=== PATIENT | female | born 1940 | race Asian ===

== ENCOUNTER 2016-12-23 09:18 | Day surgery (SDC) | payer OTHER ==
[2016-12-23 10:01] VITALS: BMI 25.3
[2016-12-23] MEDS ORDERED: PROPOFOL 20 ML ONE (10:05)
[2016-12-23 10:56] VITALS: TEMP 97.7
[2016-12-23 11:25] VITALS: BP 105/59; PULSE 73
--- NOTE | 2016-12-24 12:07 | PATH ---
Surgical Pathology Report Patient Name: DYLAN MARISCAL [facility]. Rec. #: [id number] /Age/Gender: 1940 (Age: 76) / F Account: [id number] Location: U-ENDOSCOPY Taken: 12/23/2016 Received: 12/23/2016 Reported: 12/24/2016 Physicians: Cleopatra Joseph M.D. Specimen(s) Received A: BX STOMACH (BODY/ANTRUM) B: BX GE JUNCTION Clinical History Gastric metaplasia Severe GERD, hiatal hernia, gastritis Final Diagnosis A. STOMACH, BODY AND ANTRUM, BIOPSY: MILD CHRONIC GASTRITIS. IMMUNOSTAIN FOR H. PYLORI IS NEGATIVE. B. GE JUNCTION, BIOPSY: SQUAMOUS MUCOSA WITH PAPILLOMATOSIS SUGGESTIVE OF REFLUX ESOPHAGITIS. NO INTESTINAL METAPLASIA IDENTIFIED (NO DICKERSON'S IDENTIFIED). Electronically Signed Lamont Manzano M.D. Gross Description A. Received in formalin, labeled "biopsy body/antrum" are 5 butt, irregular portions of soft tissue ranging from 0.2-0.5 cm. in greatest dimension. The specimens are submitted in toto in one cassette. B. Received in formalin, labeled "biopsy GE junction" are 3 butt, irregular portions of soft tissue ranging from 0.2-0.6 cm. in greatest dimension. The specimens are submitted in toto in one cassette. 12/23/201612/23/2016
== END 2016-12-23 11:31 | disposition home or self-care (01) ==
LOC: JASU-ENDO 09:18
PROVIDERS: ATTEND Internal Medicine Gastroenterology
PROC: 0DB38ZX Excision of Lower Esophagus, Via Natural or Artificial Opening Endoscopic, Diagnostic (ICD-10-PCS; 2016-12-23)
PROC: 0DB68ZX Excision of Stomach, Via Natural or Artificial Opening Endoscopic, Diagnostic (ICD-10-PCS; principal; 2016-12-23 10:00)
DX: K21.9 Gastro-esophageal reflux disease without esophagitis (principal); K20.9 Esophagitis, unspecified; K44.9 Diaphragmatic hernia without obstruction or gangrene; K22.2 Esophageal obstruction
CPT/HCPCS: 88305-TC; 88342-TC

== ENCOUNTER → 2017-01-13 | Day surgery (SDC) | payer OTHER ==
--- NOTE | 2017-01-14 15:37 | PATH ---
Cytology Non-Gynecological Report Patient Name: DYLAN MARISCAL [facility]. Rec. #: [id number] /Age/Gender: 1940 (Age: 76) / F Account: [id number] Location: RADIOLOGY Taken: 01/13/2017 Received: 01/13/2017 Reported: 01/14/2017 Physicians: Yoselyn Tracy M.D. Specimen(s) Received LEFT THYROID FNA Clinical History Left thyroid nodule, 5.19 x 3.02 x 3.15 cm Final Diagnosis THYROID GLAND, LEFT LOBE, US GUIDED FINE NEEDLE ASPIRATION BIOPSY: SATISFACTORY FOR EVALUATION. NO MALIGNANT CELLS IDENTIFIED. CONSISTENT WITH NODULAR GOITER WITH CYSTIC CHANGE (BENIGN FOLLICULAR NODULE, BETHESDA CATEGORY II, BENIGN), SEE COMMENT. Comment: The smears and the cell block show clusters of bland-appearing follicular petechial cells arranged in mixed macro- and microfollicles. Macrophages are present indicative of cystic change. Abundant colloid is present. Electronically Signed Tony George M.D. Gross Description Received are four air dried smears, four smears in 95% alcohol, and 20 cc of bloody fluid in formalin. Four diff-quik stained slides, four Pap stained slides and one cell block are made.
== END | disposition home or self-care (01) ==
LOC: JRADIR 08:55
PROVIDERS: ATTEND Internal Medicine Endocrinology, Diabetes & Metabolism
PROC: 0G9G3ZX Drainage of Left Thyroid Gland Lobe, Percutaneous Approach, Diagnostic (ICD-10-PCS; principal; 2017-01-13)
PROC: BG44ZZZ Ultrasonography of Thyroid Gland (ICD-10-PCS; 2017-01-13)
DX: E04.1 Nontoxic single thyroid nodule (principal)
CPT/HCPCS: 76942; 88173; 88305-TC

== ENCOUNTER 2017-06-01 08:17 | Observation (INO) | payer OTHER ==
[2017-06-01] MEDS ORDERED: ONDANSETRON 4 MG/2 ML VIAL IVPUSH ONE (08:49)
[2017-06-01] MEDS ORDERED: FAMOTIDINE 20 MG/50 ML IVPB 50 ML IVPB ONE ×2 (08:56→09:01)
[2017-06-01] MEDS ORDERED: MAG HYDROX/AL HYDROX/SIMETH 30 ML UNIT-DOSE CUP PO ONE (08:56)
[2017-06-01] MEDS ORDERED: MAG HYDROX/AL HYDROX/SIMETH 30 ML UNIT-DOSE CUP ONE (09:01)
[2017-06-01] MEDS ORDERED: ONDANSETRON 4 MG/2 ML VIAL ONE (09:01)
--- NOTE | 2017-06-01 09:04 | PDOC ---
Attending Attestation - HPI HPI: 06/01/17 09:05 The patient is a 76 year old female, with a significant past medical history of CVA (2015), NIDDM, Gastritis, Colon Adenoma, Diverticulitis, GERD, Gout, HTN, HLD, Thyroid goiter, Dementia who presents to the emergency department with LUQ abdominal pain and vomiting. Patient reports 2 episodes of vomiting (nonbilious , nonbloody) and associated nausea. Patient denies any bloody stool. She denies chest pain, headache or dizziness. She denies fever, chills, diarrhea or constipation. She denies dysuria, frequency, urgency or hematuria. Allergies: NKA Past surgical history: None Social history: None PCP: None - Physicial Exam PE: 06/01/17 09:05 GENERAL: Awake, alert, and fully oriented, in no acute distress HEAD: No signs of trauma EYES: PERRLA, EOMI, sclera anicteric, conjunctiva clear ENT: Auricles normal inspection, hearing grossly normal, nares patent, oropharynx clear without exudates. Moist mucosa NECK: Normal ROM, supple, no lymphadenopathy, JVD, or masses LUNGS: Breath sounds equal, clear to auscultation bilaterally. No wheezes, and no crackles HEART: Regular rate and rhythm, normal S1 and S2, no murmurs, rubs or gallops ABDOMEN: +LUQ tenderness. Soft, normoactive bowel sounds. No guarding, no rebound. No masses EXTREMITIES: Normal range of motion, no edema. No clubbing or cyanosis. No cords, erythema, or tenderness NEUROLOGICAL: Cranial nerves II through XII grossly intact. Normal speech, normal gait SKIN: Warm, Dry, normal turgor, no rashes or lesions noted. - Medical Decision Making 06/01/17 09:05 Documentation prepared by Kirstin James, acting as medical director/head team physician for Juventino Woods MD <Kirstin James - Last Filed: 06/01/17 09:05> - Resident Resident Name: Toni Gupta - ED Attending Attestation I have performed the following: I have examined & evaluated the patient, The case was reviewed & discussed with the resident, I agree w/resident's findings & plan, Exceptions are as noted - Medical Decision Making 06/01/17 09:03 Portion of this note was written by my scribe, under my supervision. Vital Signs Temp Pulse Resp BP Pulse Ox 97.5 F L 85 18 138/70 99 06/01/17 08:23 06/01/17 08:23 06/01/17 08:23 06/01/17 08:23 06/01/17 08:23 76-year-old female history of hypertension, diabetes and history of gastric ulcer presents with left upper quadrant pain. Patient reports that she has had several episodes of vomiting with this left upper quadrant pain that is reminiscent of her gastritis. Denies fevers or chills. Though the triage note documents red stool, the patient actually denies bloody stool per rectum. I suspect this is likely gastritis. However, given her age, we'll obtain EKG and a troponin. Labs to rule out other abdominal etiology such as pancreatitis. GERD medications and reassess. 06/01/17 09:21 06/01/17 12:50 CBC, BMP 06/01/17 08:59 06/01/17 08:59 CMP Sodium 140 mmol/L (136-145) 06/01/17 08:59 Potassium 3.5 mmol/L (3.5-5.1) 06/01/17 08:59 Chloride 105 mmol/L (98-107) 06/01/17 08:59 Carbon Dioxide 27 mmol/L (21-32) 06/01/17 08:59 Anion Gap 8 (8-16) 06/01/17 08:59 BUN 34 mg/dL (7-18) H 06/01/17 08:59 Creatinine 1.9 mg/dL (0.55-1.02) H D 06/01/17 08:59 Creat Clearance w eGFR 25.57 (>60) 06/01/17 08:59 Random Glucose 104 mg/dL (74-106) D 06/01/17 08:59 Lactic Acid 0.9 mmol/L (0.4-2.0) 06/01/17 08:59 Calcium 9.0 mg/dL (8.5-10.1) 06/01/17 08:59 Total Bilirubin 0.8 mg/dL (0.2-1.0) D 06/01/17 08:59 AST 22 U/L (15-37) 06/01/17 08:59 ALT 24 U/L (12-78) D 06/01/17 08:59 Alkaline Phosphatase 78 U/L (45-117) D 06/01/17 08:59 Creatine Kinase 226 IU/L (26-192) H 06/01/17 08:53 Creatine Kinase Index 1.4 % (0.0-5.0) 06/01/17 08:53 CK-MB (CK-2) 3.325 ng/mL (0.5-3.6) 06/01/17 08:53 Troponin I 0.09 ng/ml (0.00-0.05) H 06/01/17 08:53 Total Protein 7.9 g/dl (6.4-8.2) 06/01/17 08:59 Albumin 4.2 g/dl (3.4-5.0) 06/01/17 08:59 Lipase 143 U/L (73-393) 06/01/17 08:59 Trop is 0.09. Given hx of CV risk factors and age, will admit for PAULIE on telemettry. <Juventino Woods - Last Filed: 06/01/17 12:50> Heart Score/ECG Review #1 ECG reviewed & interpreted by me at: 09:10 06/01/17 09:22 NSR 85, no std/emmy, T wave flat III, QTC 447 msec. normal ECG <Juventino Woods - Last Filed: 06/01/17 12:50>
[2017-06-01 09:27] LABS: BASOPHIL 0.4 % (0-2.0); EOSINOPHIL 1.5 % (0-4.5); MCH 30.7 pg (25.7-33.7); MCHC 33.2 g/dl (32.0-36.0); MEAN CELL VOLUME 92.5 fl (80-96); MEAN PLT VOLUME 8.6 fl (7.5-11.1); NEUTROPHILS 68.3 % (42.8-82.8); PLATELET COUNT 159 K/MM3 (134-434); RDW 14.1 % (11.6-15.6); WHITE BLOOD COUNT 8.2 K/mm3 (4.0-10.0)
[2017-06-01 09:30] LABS: URINE APPEARANCE CLEAR; URINE BILIRUBIN NEGATIVE (NEGATIVE); URINE BLOOD NEGATIVE (NEGATIVE); URINE COLOR LT. YELLOW; URINE GLUCOSE (UA) NEGATIVE (NEGATIVE); URINE KETONE TRACE (NEGATIVE); URINE LEUK ESTERASE NEGATIVE (NEGATIVE); URINE NITRITE NEGATIVE (NEGATIVE); URINE PROTEIN NEGATIVE (NEGATIVE)
--- NOTE | 2017-06-01 09:53 | PDOC ---
History of Present Illness - General Chief Complaint: Pain Stated Complaint: ABD PAIN/rectal bleed/vomiting Time Seen by Provider: 06/01/17 08:31 History Source: Patient Exam Limitations: No Limitations - History of Present Illness Initial Comments: 06/01/17 09:48 Patient is a 76F with history of HTN, DM, gastric ulcer, dementia and SAH (2014 ) here today complaining of two episodes of vomiting. She has vomited once yesterday and once the day before, describes both as reddish-brown liquid. She denies abdominal pain, chest pain, shortness of breath, diarrhea, constipation, fevers and chills. She denies blood or melena in her stool. She's currently complaining of nausea. She denies sick contacts. She says that she's currently taking pantoprazole for her peptic ulcer. Past History - Past Medical History Allergies/Adverse Reactions: Allergies Allergy/AdvReac Type Severity Reaction Status Date / Time No Known Allergies Allergy Verified 06/01/17 08:25 Home Medications: Ambulatory Orders Allopurinol [Zyloprim -] 200 mg PO DAILY 04/05/15 Aspirin [ASA -] 81 mg PO DAILY 04/05/15 Atorvastatin Ca [Lipitor] 10 mg PO HS 04/05/15 Glyburide 5 mg PO DAILY 04/05/15 Losartan/Hydrochlorothiazide [Losartan-Hctz 100-25 mg Tab] 1 each PO DAILY 04/05 Alendronate Sodium [Binosto] 70 mg PO TU 12/23/16 Bimatoprost [Lumigan] 1 drop IO DAILY 12/23/16 Cyanocobalamin (Vitamin B-12) [Vitamin B12] 1,000 mcg PO DAILY 12/23/16 Donepezil HCl [Aricept -] 5 mg PO DAILY 12/23/16 Memantine HCl [Namenda -] 10 mg PO BID 12/23/16 Methimazole [Tapazole] 5 mg PO ASDIR 12/23/16 Pantoprazole Sodium [Protonix] 40 mg PO DAILY #0 tablet. 12/23/16 Ranitidine HCl [Zantac] 150 mg PO BID 06/01/17 Diabetes: Yes (NIDDM) GI Disorders: Yes (S/P H-PYLORI GASTRITIS, COLON ADENOMA, DIVERTICULOSIS, GERD) Disorders: Yes (GOUT) HTN: Yes Hypercholesterolemia: Yes Thyroid Disease: Yes (GOITER - EUTHYROID) - Psycho/Social/Smoking Cessation Hx Anxiety: No Suicidal Ideation: No Smoking History: Never smoked Have you smoked in the past 12 months: No Information on smoking cessation initiated: No Hx Alcohol Use: No Drug/Substance Use Hx: No Substance Use Type: None Review of Systems - Review of Systems Comments:: 06/01/17 10:20 GENERAL/CONSTITUTIONAL: No fever or chills. No weakness. HEAD, EYES, EARS, NOSE AND THROAT: No change in vision. No ear pain or discharge. No sore throat. CARDIOVASCULAR: No chest pain or shortness of breath RESPIRATORY: No cough, wheezing, or hemoptysis. GASTROINTESTINAL: Positive for nausea and vomiting. Negative for diarrhea or constipation. GENITOURINARY: No dysuria, frequency, or change in urination. SKIN: No rash NEUROLOGIC: No headache, loss of consciousness, or change in strength/ sensation. HEMATOLOGIC/LYMPHATIC: No anemia, easy bleeding, or history of blood clots. ALLERGIC/IMMUNOLOGIC: No hives or skin allergy. *Physical Exam - Vital Signs Last Vital Signs Temp Pulse Resp BP Pulse Ox 97.5 F L 85 18 138/70 99 06/01/17 08:23 06/01/17 08:23 06/01/17 08:23 06/01/17 08:23 06/01/17 08:23 - Physical Exam Comments: 06/01/17 10:21 GENERAL: Awake, alert, and fully oriented, in no acute distress HEAD: No signs of trauma, normocephalic, atraumatic EYES: PERRLA, EOMI, sclera anicteric, conjunctiva clear ENT: Auricles normal inspection, hearing grossly normal, nares patent, oropharynx clear without exudates. Moist mucosa LUNGS: No distress, speaks full sentences, clear to auscultation bilaterally HEART: Regular rate and rhythm, normal S1 and S2, no murmurs, rubs or gallops, peripheral pulses normal and equal bilaterally. ABDOMEN: Tender in left upper quadrant. No guarding, no rebound. No masses EXTREMITIES: Normal inspection, Normal range of motion, no edema. No clubbing or cyanosis. NEUROLOGICAL: Cranial nerves II through XII grossly intact. Normal speech, normal gait, no focal sensorimotor deficits SKIN: Warm, Dry, normal turgor, no rashes or lesions noted. Heart Score/ECG Review - History History: Slightly suspicious - Electrocardiogram EKG: Normal - Age Age: >/= 65 - Risk Factors Risk Factors Heart Score: Yes Hx Hypertension, Yes Hx Diabetes Based on the list above the patient has:: 1-2 risk factors - Troponin Troponin: 1-3x normal limit - Score Heart Score - Total: 4 ED Treatment Course - LABORATORY CBC & Chemistry Diagram: 06/01/17 08:59 06/01/17 08:59 - ADDITIONAL ORDERS Additional order review: Laboratory Results 06/01/17 08:59 Urine Color Lt. yellow Urine Appearance Clear Urine pH 6.0 Urine Protein Negative Urine Glucose (UA) Negative Urine Ketones Trace H Urine Blood Negative Urine Nitrite Negative Urine Bilirubin Negative Urine Urobilinogen 1.0 - Medications Given in the ED: ED Medications Discontinued Medications Generic Name Dose Route Start Last Admin Trade Name Freq PRN Reason Stop Dose Admin Al Hydroxide/Mg Hydroxide 30 ml 06/01/17 08:56 06/01/17 09:05 Mylanta Oral Suspension - PO 06/01/17 08:57 30 ml ONCE ONE Administration Famotidine/Sodium Chloride 50 mls @ 100 mls/hr 06/01/17 08:56 06/01/17 09:05 Pepcid 20 Mg Premixed Ivpb - IVPB 06/01/17 09:25 100 mls/hr ONCE ONE Administration Ondansetron HCl 4 mg 06/01/17 08:49 06/01/17 09:05 Zofran Injection IVPUSH 06/01/17 08:50 4 mg ONCE ONE Administration Medical Decision Making - Medical Decision Making 06/01/17 10:22 Patient is 76F with history of DM and HTN here today complaining of vomiting. Vital signs stable and normal. Will evaluate with abdominal labs, trop, ecg, and ua. EKG shows normal sinus rhythm, normal rate, QTc 447, no st elevations and no t- wave inversions 06/01/17 10:25 Laboratory Tests 06/01/17 06/01/17 06/01/17 08:53 08:59 08:59 WBC 8.2 Hgb 11.4 Hct 34.2 Plt Count 159 BUN 34 H Creatinine 1.9 H D Creat Clearance w eGFR 25.57 Creatine Kinase 226 H CK-MB (CK-2) 3.325 Troponin I 0.09 H CBC normal. CMP notable for BUN 34 and Cr of 1.9, up from baseline of 1.5. Trop positive to .09. ASA 162 given, second trop ordered for 1300. Patient now notes that she's had a couple episodes of left arm pain the past few days. Patient has ZAID, possible cause of positive trop, will give 1L. HEART score 4, will admit to obs. *DC/Admit/Observation/Transfer Diagnosis at time of Disposition: Acute kidney injury, Elevated troponin level - Discharge Dispostion Admit: Yes
[2017-06-01 09:55] LABS: ALBUMIN 4.2 g/dl (3.4-5.0); ALK PHOS 78 U/L (45-117); ANION GAP 8 (8-16); BILIRUBIN,TOTAL 0.8 mg/dL (0.2-1.0); CO2 27 mmol/L (21-32); CREATININE 1.9 mg/dL (0.55-1.02); GLUCOSE,RANDOM 104 mg/dL (74-106); SGOT/AST 22 U/L (15-37); SGPT/ALT 24 U/L (12-78); TOT PROT 7.9 g/dl (6.4-8.2)
[2017-06-01 09:58] LABS: TROPONIN I 0.09 ng/ml (0.00-0.05)
[2017-06-01] MEDS ORDERED: ASPIRIN 81 MG CHEWABLE TABLETS PO ONE (10:05)
[2017-06-01] MEDS ORDERED: SODIUM CHLORIDE 1,000 ML IV STA (10:12)
[2017-06-01] MEDS ORDERED: ASPIRIN 81 MG CHEWABLE TABLETS ONE (10:13)
--- NOTE | 2017-06-01 10:25 | EKG ---
Test Reason : Blood Pressure : / mmHG Vent. Rate : 085 BPM Atrial Rate : 085 BPM P-R Int : 168 ms QRS Dur : 074 ms QT Int : 376 ms P-R-T Axes : 048 001 046 degrees QTc Int : 447 ms NORMAL SINUS RHYTHM BASELINE ARTIFACTS COMPARED TO 05-APR-2015 PREVIOUS TRACING HAD SIGNIFICANT BASELINE ARTIFACTES REPEAT EKG IF CLINICALLY INDICATED Confirmed by REBECA BALDERAS MD ([id number]) on 06/01/2017 10:25:25 AM Referred By: Confirmed By:REBECA BALDERAS MD
--- NOTE | 2017-06-01 11:00 | HP ---
CHIEF COMPLAINT: abdominal pain for 2 days with nausea and bloody vomiting. PCP: Dr. Piper HISTORY OF PRESENT ILLNESS: Patient is a 76 year old female with a significant past medical history of hypertension, diabetes mellitus, gastric ulcer disease, dementia, colon adenoma , diverticulities, GERD, gout and CVA/subdural hematoma (2014). She presents to the ED today complaining of abdominal pain for 2 days with nausea and vomiting. States that this past Wednesday and Wednesday she vomited what appeared to be "dark arrington colored" vomiting. She denies any rectal bleeding or bloody stools. States her last bowel movement was yesterday and it was brown and formed. She denies any vomiting today and states she feels better and is asking to go home. She denies chest pain , back pain, jaw pain or shortness of breath, She endorses left arm pain after getting a flu shot last Wednesday. ER course was notable for: (1) bun 34, creat 1.9 (2) lactic acid 0.9 (3) trop 0.09, ekg nsr baseline artifact Recent Travel: PAST MEDICAL HISTORY: CVA (2014), NIDDM, Gastritis, Colon Adenoma, Diverticulitis, GERD, Gout, HTN, HLD, PAST SURGICAL HISTORY: Social History: Smoking: none Alcohol: none Drugs: none Family History: Allergies No Known Allergies Allergy (Verified 06/01/17 08:25) HOME MEDICATIONS: Home Medications Medication Instructions Recorded Allopurinol [Zyloprim -] 200 mg PO DAILY 04/05/15 Aspirin [ASA -] 81 mg PO DAILY 04/05/15 Atorvastatin Ca [Lipitor] 10 mg PO HS 04/05/15 Glyburide 5 mg PO DAILY 04/05/15 Losartan/Hydrochlorothiazide 1 each PO DAILY 04/05/15 [Losartan-Hctz 100-25 mg Tab] Alendronate Sodium [Binosto] 70 mg PO TU 12/23/16 Bimatoprost [Lumigan] 1 drop IO DAILY 12/23/16 Cyanocobalamin (Vitamin B-12) 1,000 mcg PO DAILY 12/23/16 [Vitamin B12] Donepezil HCl [Aricept -] 5 mg PO DAILY 12/23/16 Memantine HCl [Namenda -] 10 mg PO BID 12/23/16 Methimazole [Tapazole] 5 mg PO ASDIR 12/23/16 Pantoprazole Sodium [Protonix] 40 mg PO DAILY #0 tablet. 12/23/16 Ranitidine HCl [Zantac] 150 mg PO BID 06/01/17 REVIEW OF SYSTEMS CONSTITUTIONAL: Absent: fever, chills, diaphoresis, generalized weakness, malaise, loss of appetite, weight change HEENT: Absent: rhinorrhea, nasal congestion, throat pain, throat swelling, difficulty swallowing, mouth swelling, ear pain, eye pain, visual changes CARDIOVASCULAR: Absent: chest pain, syncope, palpitations, irregular heart rate, lightheadedness , peripheral edema RESPIRATORY: Absent: cough, shortness of breath, dyspnea with exertion, orthopnea, wheezing, stridor, hemoptysis GASTROINTESTINAL: Absent: abdominal pain, abdominal distension, nausea, vomiting, diarrhea, constipation GENITOURINARY: Absent: dysuria, frequency, urgency, hesitancy, hematuria, flank pain, genital pain MUSCULOSKELETAL: Absent: myalgia, arthralgia, joint swelling, back pain, neck pain SKIN: Absent: rash, itching, pallor HEMATOLOGIC/IMMUNOLOGIC: Absent: easy bleeding, easy bruising, lymphadenopathy, frequent infections ENDOCRINE: Absent: unexplained weight gain, unexplained weight loss, heat intolerance, cold intolerance NEUROLOGIC: Absent: headache, focal weakness or paresthesias, dizziness, unsteady gait, seizure, mental status changes, bladder or bowel incontinence PSYCHIATRIC: Absent: anxiety, depression, suicidal or homicidal ideation, hallucinations. PHYSICAL EXAMINATION Vital Signs - 24 hr 06/01/17 08:23 Temperature 97.5 F L Pulse Rate 85 Respiratory 18 Rate Blood Pressure 138/70 O2 Sat by Pulse 99 Oximetry (%) GENERAL: Awake, alert, and fully oriented, in no acute distress. HEAD: Normal with no signs of trauma. EYES: Pupils equal, round and reactive to light, extraocular movements intact, sclera anicteric, conjunctiva clear. No lid lag. EARS, NOSE, THROAT: Ears normal, nares patent, oropharynx clear without exudates. Moist mucous membranes. NECK: Normal range of motion, supple without lymphadenopathy, JVD, or masses. LUNGS: Breath sounds equal, clear to auscultation bilaterally. No wheezes, and no crackles. No accessory muscle use. HEART: Regular rate and rhythm ABDOMEN: Soft, nontender, not distended, normoactive bowel sounds, no guarding, no rebound, no masses. No hepatomegaly or splenomegaly. MUSCULOSKELETAL: Normal range of motion at all joints. No bony deformities or tenderness. No CVA tenderness. UPPER EXTREMITIES: 2+ pulses, warm, well-perfused. No cyanosis. No clubbing. No peripheral edema. LOWER EXTREMITIES: 2+ pulses, warm, well-perfused. No calf tenderness. No peripheral edema. NEUROLOGICAL: Cranial nerves II-XII intact. Normal speech. Normal gait. PSYCHIATRIC: Cooperative. Good eye contact. Appropriate mood and affect. SKIN: Warm, dry, normal turgor, no rashes or lesions noted, normal capillary refill. Laboratory Results - last 24 hr 06/01/17 06/01/17 06/01/17 08:53 08:59 08:59 WBC 8.2 RBC 3.70 Hgb 11.4 Hct 34.2 MCV 92.5 MCH 30.7 MCHC 33.2 RDW 14.1 Plt Count 159 MPV 8.6 Neutrophils % 68.3 Lymphocytes % 20.3 Monocytes % 9.5 Eosinophils % 1.5 Basophils % 0.4 Sodium Potassium Chloride Carbon Dioxide Anion Gap BUN Creatinine Creat Clearance w eGFR Random Glucose Lactic Acid Calcium Total Bilirubin AST ALT Alkaline Phosphatase Creatine Kinase 226 H Creatine Kinase Index 1.4 CK-MB (CK-2) 3.325 Troponin I 0.09 H Total Protein Albumin Lipase Urine Color Lt. yellow Urine Appearance Clear Urine pH 6.0 Urine Protein Negative Urine Glucose (UA) Negative Urine Ketones Trace H Urine Blood Negative Urine Nitrite Negative Urine Bilirubin Negative Urine Urobilinogen 1.0 06/01/17 06/01/17 08:59 08:59 WBC RBC Hgb Hct MCV MCH MCHC RDW Plt Count MPV Neutrophils % Lymphocytes % Monocytes % Eosinophils % Basophils % Sodium 140 Potassium 3.5 Chloride 105 Carbon Dioxide 27 Anion Gap 8 BUN 34 H Creatinine 1.9 H D Creat Clearance w eGFR 25.57 Random Glucose 104 D Lactic Acid 0.9 Calcium 9.0 Total Bilirubin 0.8 D AST 22 ALT 24 D Alkaline Phosphatase 78 D Creatine Kinase Creatine Kinase Index CK-MB (CK-2) Troponin I Total Protein 7.9 Albumin 4.2 Lipase 143 Urine Color Urine Appearance Urine pH Urine Protein Urine Glucose (UA) Urine Ketones Urine Blood Urine Nitrite Urine Bilirubin Urine Urobilinogen ASSESSMENT/PLAN: Patient is a 76 year old female with a significant past medical history of hypertension, diabetes mellitus, gastric ulcer disease, dementia, colon adenoma , diverticulitis, GERD, gout and CVA/subdural hematoma (2014). She presents to the ED today complaining of abdominal pain for 2 days with nausea and vomiting. States that this past Wednesday and Wednesday she vomited what appeared to be "dark arrington colored" vomiting. She denies any rectal bleeding or bloody stools. States her last bowel movement was yesterday and it was brown and formed. She denies any vomiting today and states she feels better and is asking to go home. She denies chest pain , back pain, jaw pain or shortness of breath, She endorses left arm pain after getting a flu shot last Wednesday. GI: Abdominal pain/Gastric ulcer/rule out upper GI bleed A/P: As per pt she has had two episodes (on Wednesday and Wednesday) of "dark arrington colored" vomiting. Her sister in law at the bedside and confirms this finding Her abdomen is soft, non distended, + bowel sounds Abdominal xray to rule out obstruction She has ZAID, will not order an abd ct with contrast Will start on Protonix drip hmg/hct stable NS @ 75cc NPO GI consult Cardiology: Elevated troponins A/P: Denies chest pain or shortness of breath, has left arm pain but states its due to a flu shot she received on Wednesday Trend troponins rule out ACS/cardiology consulted Given ASA `162 in ED Hypertension - chronic A/P: monitor BP Endocrine: Diabetes mellitus A/P: monitor glucs, novolog Renal: AZID - creat now 1.9 Creatinine 1.4 on last admission On IVF Neurology: CVA/subdural hematoma (2014) A/P: On ASA 81mg On Lipitor @ hs F.E.N. Fliuds: NS @ 75cc/h/r Electrolytes: monitor Nutrition: NPO Disposition: Monitor on observation. full code. Visit type - Emergency Visit Emergency Visit: Yes ED Registration Date: 06/01/17 Care time: The patient presented to the Emergency Department on the above date and was hospitalized for further evaluation of their emergent condition. - New Patient This patient is new to me today: Yes Date on this admission: 06/01/17 - Critical Care Critical Care patient: No
[2017-06-01] MEDS ORDERED: PANTOPRAZOLE SODIUM 80 MG in SODIUM CHLORIDE 100 ML IVPB SCH (12:15)
[2017-06-01] MEDS ORDERED: PANTOPRAZOLE SODIUM 40 MG VIAL ONE (12:25)
--- NOTE | 2017-06-01 14:06 | CON.GI ---
Consult Consult Specialty:: GI Referred by:: Hospitalist Reason for Consultation:: Vomiting - History of Present Illness Chief Complaint: "I vomited dark" History of Present Illness: 76F admitted for evaluation of vomiting. Ms. Muñoz explains that she vomited dark liquid once two days ago and once last night. Triage vitals revealed T: 97.4 P: 79 BP: 139/78. There was abdominal pain in the epigastrium only after vomiting. She currently denies any abdominal pain. The H&P describes Ms. Muñoz being on acid suppression therapy for PUD however in review of the Hemoteq system, endoscopy performed 01/[address] Joseph failed to reveal PUD. It did reveal reflux, a non-obstructing schatzki's ring and a hiatal hernia. He advised a repeat EGD in 3 years. She also believes that she had a colonoscopy the same day that was "OK". H&P gives a history of colon polyps. She currently denies further nausea, vomiting. There has been no melena, change in bowel habits, rectal bleeding, change in stool caliber, unintentional weight loss or similar episodes in the past. She takes ASA 81mg once daily and denies concomitant use of OTC NSAIDs. She takes protonix every evening and ranitidine in the morning for reflux disease. 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 : Other ([facility]) History of Recent Travel: No Home Medications - Allergies Allergies/Adverse Reactions: Allergies Allergy/AdvReac Type Severity Reaction Status Date / Time No Known Allergies Allergy Verified 06/01/17 08:25 - Home Medications Home Medications: Ambulatory Orders Allopurinol [Zyloprim -] 200 mg PO DAILY 04/05/15 Aspirin [ASA -] 81 mg PO DAILY 04/05/15 Atorvastatin Ca [Lipitor] 10 mg PO HS 04/05/15 Glyburide 5 mg PO DAILY 04/05/15 Losartan/Hydrochlorothiazide [Losartan-Hctz 100-25 mg Tab] 1 each PO DAILY 04/05 Alendronate Sodium [Binosto] 70 mg PO TU 12/23/16 Bimatoprost [Lumigan] 1 drop IO DAILY 12/23/16 Cyanocobalamin (Vitamin B-12) [Vitamin B12] 1,000 mcg PO DAILY 12/23/16 Donepezil HCl [Aricept -] 5 mg PO DAILY 12/23/16 Memantine HCl [Namenda -] 10 mg PO BID 12/23/16 Methimazole [Tapazole] 5 mg PO ASDIR 12/23/16 Pantoprazole Sodium [Protonix] 40 mg PO DAILY #0 tablet. 12/23/16 Ranitidine HCl [Zantac] 150 mg PO BID 06/01/17 Family Disease History - Family Disease History Family Disease History: Other: Father ( 70's "old age"), Mother ( 70's "old age"), Brother (1, in accident), Sister (1, from lung cancer) Other Family History: 2 healthy children. No family history of colorectal cancer or other Gi malignancy Review of Systems - Review of Systems Constitutional: denies: Chills HENT: denies: Difficult Swallowing Cardiovascular: denies: Chest Pain, Palpitations Respiratory: denies: SOB Gastrointestinal: reports: Vomiting (resolved). denies: Bloating, Constipation , Diarrhea, Dysphagia, Melena, Rectal Bleeding Physical Exam-GI Vital Signs: Vital Signs Temperature 97.5 F L 06/01/17 08:23 Pulse Rate 83 06/01/17 13:04 Respiratory Rate 16 06/01/17 13:04 Blood Pressure 118/64 06/01/17 13:04 O2 Sat by Pulse Oximetry (%) 95 06/01/17 13:04 Constitutional: Yes: Calm Eyes: No: Sclera Icterus Cardiovascular: Yes: Regular Rate and Rhythm Respiratory: Yes: CTA Bilaterally Gastrointestinal Inspection: No: Distention ...Auscultate: Yes: Normoactive Bowel Sounds ...Palpate: No: Hepatomegaly, Splenomegaly, Tenderness ...Percussion: No: Tympanitic ...Rectal Exam: Yes: Other (butt stool, guaiac negative. No masses, no external lesions) Edema: No Neurological: Yes: Alert, Oriented Labs: CBC, BMP 06/01/17 08:59 06/01/17 08:59 Hepatic Panel Total Bilirubin 0.8 mg/dL (0.2-1.0) D 06/01/17 08:59 AST 22 U/L (15-37) 06/01/17 08:59 ALT 24 U/L (12-78) D 06/01/17 08:59 Alkaline Phosphatase 78 U/L (45-117) D 06/01/17 08:59 Albumin 4.2 g/dl (3.4-5.0) 06/01/17 08:59 Imaging - Results X-ray: Image Reviewed (No read officially yet but there appears to be a non- obstructive gas pattern) Problem List - Problems (1) Vomiting Assessment/Plan: No further vomiting, hemodynamically stable and guaiac negative on exam Initial hgb wnl despite the dark vomiting occurring 48 hours ago. I do not suspect that Ms. Toni virgen has significant upper GI hemorrhage occurring. I question if what she vomited was retained gastric content as opposed to true blood. She also has no ongoing abdominal pain and a normal appearing AXR making persistent gastric volvulus unlikely. Advise for now: Monitoring H/H Trial of clear liquids Protonix 40mg once daily If tolerating clears and no signs of ongoing GI bleeding, advance to diabetic diet Outpatient follow-up with Dr. Joseph Renal insufficiency: unclear what her baseline is. ? prerenal or alternate etiology. W/U per primary team Code(s): R11.10 - VOMITING, UNSPECIFIED
[2017-06-01 14:08] VITALS: BMI 24.9
[2017-06-01] MEDS: SODIUM CHLORIDE 1,000 ML IV SCH (14:16)
[2017-06-01 14:18] LABS: TROPONIN I 0.09 ng/ml (0.00-0.05)
[2017-06-01] MEDS ORDERED: PATIENT'S OWN MEDICATION (NON-FORMULARY) (Alendronate Sodium [Binosto] 70 MG) PO SCH (17:30)
--- NOTE | 2017-06-01 17:43 | CON.CARD ---
Consult Consult Specialty:: Cardiology Referred by:: Hospitalist Reason for Consultation:: Cardiac evaluation - History of Present Illness Chief Complaint: Vomiting History of Present Illness: Patient is a 76 year old female of [place] descent with underlying descent with underlying history of hypertension, type 2 diabetes mellitus, gastric ulcer disease, history of organic brain/dementia, colon CA, history of diverticular disease, GERD, CVA and subdural hematoma who presents with vomiting. She was seen by GI for further evaluation and input. She denies chest pain, shortness of breath or palpitations. She denies paroxysmal nocturnal dyspnea or orthopnea. She denies fever or chills. She denies headache or lightheadedness. She denies melana or hematemesis. Troponin was reported 0.09. Cardiology consultation was called for further evaluation. 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: No Home Medications - Allergies Allergies/Adverse Reactions: Allergies Allergy/AdvReac Type Severity Reaction Status Date / Time No Known Allergies Allergy Verified 06/01/17 08:25 - Home Medications Home Medications: Ambulatory Orders Allopurinol [Zyloprim -] 200 mg PO DAILY 04/05/15 Aspirin [ASA -] 81 mg PO DAILY 04/05/15 Atorvastatin Ca [Lipitor] 10 mg PO HS 04/05/15 Glyburide 5 mg PO DAILY 04/05/15 Losartan/Hydrochlorothiazide [Losartan-Hctz 100-25 mg Tab] 1 each PO DAILY 04/05 Alendronate Sodium [Binosto] 70 mg PO TU 12/23/16 Bimatoprost [Lumigan] 1 drop IO DAILY 12/23/16 Cyanocobalamin (Vitamin B-12) [Vitamin B12] 1,000 mcg PO DAILY 12/23/16 Donepezil HCl [Aricept -] 5 mg PO DAILY 12/23/16 Memantine HCl [Namenda -] 10 mg PO BID 12/23/16 Methimazole [Tapazole] 5 mg PO ASDIR 12/23/16 Pantoprazole Sodium [Protonix] 40 mg PO DAILY #0 tablet. 12/23/16 Ranitidine HCl [Zantac] 150 mg PO BID 06/01/17 Family Disease History - Family Disease History Family Disease History: Other: Father ( 70's "old age"), Mother ( 70's "old age"), Brother (1, in accident), Sister (1, from lung cancer) Other Family History: 2 healthy children. No family history of colorectal cancer or other Gi malignancy Review of Systems - Review of Systems Constitutional: denies: Chills, Fever Cardiovascular: denies: Chest Pain, Palpitations, Shortness of Breath Respiratory: denies: Cough, Hemoptysis, Orthopnea, PND, SOB, SOB on Exertion Gastrointestinal: reports: Vomiting. denies: Abdominal Pain, Constipation, Diarrhea, Melena, Nausea, Rectal Bleeding Musculoskeletal: denies: Joint Pain Neurological: denies: Dizziness, Headache, Seizure, Syncope Vital Signs: Vital Signs Temperature 97.5 F L 06/01/17 08:23 Pulse Rate 83 06/01/17 13:04 Respiratory Rate 16 06/01/17 13:04 Blood Pressure 118/64 06/01/17 13:04 O2 Sat by Pulse Oximetry (%) 95 06/01/17 13:04 Neck: Yes: Supple Respiratory: Yes: CTA Bilaterally Gastrointestinal: Yes: Normal Bowel Sounds, Soft. No: Tenderness Cardiovascular: Yes: Regular Rate and Rhythm JVD: No Carotid Bruit: No PMI: Non-Displaced Heart Sounds: Yes: S1, S2. No: Gallop Edema: No - Other Data Labs, Other Data: Troponin, BNP 06/01/17 13:42 Troponin I 0.09 H Laboratory Results - last 24 hr 06/01/17 06/01/17 06/01/17 08:53 08:59 08:59 WBC 8.2 RBC 3.70 Hgb 11.4 Hct 34.2 MCV 92.5 MCH 30.7 MCHC 33.2 RDW 14.1 Plt Count 159 MPV 8.6 Neutrophils % 68.3 Lymphocytes % 20.3 Monocytes % 9.5 Eosinophils % 1.5 Basophils % 0.4 Sodium Potassium Chloride Carbon Dioxide Anion Gap BUN Creatinine Creat Clearance w eGFR Random Glucose Lactic Acid Calcium Total Bilirubin AST ALT Alkaline Phosphatase Creatine Kinase 226 H Creatine Kinase Index 1.4 CK-MB (CK-2) 3.325 Troponin I 0.09 H Total Protein Albumin Lipase Urine Color Lt. yellow Urine Appearance Clear Urine pH 6.0 Ur Specific [place] 1.010 Urine Protein Negative Urine Glucose (UA) Negative Urine Ketones Trace H Urine Blood Negative Urine Nitrite Negative Urine Bilirubin Negative Urine Urobilinogen 1.0 06/01/17 06/01/17 06/01/17 08:59 08:59 13:42 WBC RBC Hgb Hct MCV MCH MCHC RDW Plt Count MPV Neutrophils % Lymphocytes % Monocytes % Eosinophils % Basophils % Sodium 140 Potassium 3.5 Chloride 105 Carbon Dioxide 27 Anion Gap 8 BUN 34 H Creatinine 1.9 H D Creat Clearance w eGFR 25.57 Random Glucose 104 D Lactic Acid 0.9 Calcium 9.0 Total Bilirubin 0.8 D AST 22 ALT 24 D Alkaline Phosphatase 78 D Creatine Kinase 215 H Creatine Kinase Index 1.8 CK-MB (CK-2) 3.969 H Troponin I 0.09 H Total Protein 7.9 Albumin 4.2 Lipase 143 Urine Color Urine Appearance Urine pH Ur Specific [place] Urine Protein Urine Glucose (UA) Urine Ketones Urine Blood Urine Nitrite Urine Bilirubin Urine Urobilinogen Normal sinus rhythm, no ST or T abnormality Problem List - Problems (1) Vomiting Code(s): R11.10 - VOMITING, UNSPECIFIED (2) Subdural hematoma, chronic Code(s): I62.03 - NONTRAUMATIC CHRONIC SUBDURAL HEMORRHAGE (3) CVA (cerebral vascular accident) Code(s): I63.9 - CEREBRAL INFARCTION, UNSPECIFIED Qualifiers: CVA mechanism: unspecified Qualified Code(s): I63.9 - Cerebral infarction, unspecified (4) HTN (hypertension) Code(s): I10 - ESSENTIAL (PRIMARY) HYPERTENSION Qualifiers: Hypertension type: essential hypertension Qualified Code(s): I10 - Essential (primary) hypertension (5) Gastric ulcer Code(s): K25.9 - GASTRIC ULCER, UNSP ACUTE OR CHRONIC, W/O HEMOR OR PERF (6) Diverticular disease Code(s): K57.90 - DVRTCLOS OF INTEST, PART UNSP, W/O PERF OR ABSCESS W/O BLEED Qualifiers: Diverticulosis site: unspecified location Diverticulosis bleeding: diverticulosis without bleeding Qualified Code(s): K57.90 - Diverticulosis of intestine, part unspecified, without perforation or abscess without bleeding (7) Diabetes mellitus Code(s): E11.9 - TYPE 2 DIABETES MELLITUS WITHOUT COMPLICATIONS Qualifiers: Diabetes mellitus type: type 2 Diabetes mellitus complication status: without complication Diabetes mellitus fci insulin use: without fci use Qualified Code(s): E11.9 - Type 2 diabetes mellitus without complications Assessment/Plan 1. Vomiting with underlying history of gastric ulcer 2. Hypertension 3. NIDDM 4. Hypercholesterolemia 5. History of colon CA 6. CVA and history of subdural hematoma 7. History of diverticular disease and GERD 8. Demand ischemia PLAN: 1. GI input noted 2. Trend troponins - demand ischemia 3. Continue Losartan/HCTZ as tolerated 4. Continue Lipitor 5. ASA if not contraindicated and no further GI intervention is planned 6. Transthoracic echocardiography can be ordered to assess LV/RV and valvular function Further plans are to follow Matthew Sigala MD
[2017-06-01] MEDS: INSULIN SLIDING SCALE (NOVOLOG) 1 VIAL SQ SCH ×2 (18:47→22:28)
[2017-06-01] MEDS ORDERED: ACETAMINOPHEN 325 MG TABLET (FP) PO PRN (21:22)
[2017-06-01] MEDS ORDERED: ATORVASTATIN CA 10 MG TABLET (FP) PO SCH (22:00)
[2017-06-01] MEDS ORDERED: INSULIN (NOVOLOG) ASPART 100 UNITS/ML 10ML VIAL ONE (22:22)
[2017-06-01] MEDS: MEMANTINE HCL 10 MG TABLET (FP) PO SCH (22:28)
[2017-06-01] MEDS: RANITIDINE HCL 150 MG TABLET (FP) PO SCH (22:28)
[2017-06-02] MEDS ORDERED: PT OWN MED DRAWER 7, Y5N ONE (06:02)
[2017-06-02] MEDS: INSULIN SLIDING SCALE (NOVOLOG) 1 VIAL SQ SCH ×2 (06:07→11:40)
[2017-06-02] MEDS ORDERED: glyBURIDE 5 MG TABLET (UD) PO SCH (07:00)
[2017-06-02 07:34] LABS: BASOPHIL 0.6 % (0-2.0); EOSINOPHIL 2.5 % (0-4.5); MCH 30.7 pg (25.7-33.7); MCHC 33.4 g/dl (32.0-36.0); MEAN PLT VOLUME 8.5 fl (7.5-11.1); NEUTROPHILS 57.3 % (42.8-82.8); PLATELET COUNT 144 K/MM3 (134-434); RDW 14.4 % (11.6-15.6); WHITE BLOOD COUNT 5.8 K/mm3 (4.0-10.0)
[2017-06-02 07:53] LABS: CHOLESTEROL 115 mg/dL (50-200)
[2017-06-02 08:27] LABS: ALBUMIN 3.5 g/dl (3.4-5.0); ANION GAP 7 (8-16); CALCIUM 8.7 mg/dL (8.5-10.1); CO2 26 mmol/L (21-32); CREATININE 1.5 mg/dL (0.55-1.02); GLUCOSE,RANDOM 94 mg/dL (74-106); SGOT/AST 22 U/L (15-37); SGPT/ALT 21 U/L (12-78); TOT PROT 6.8 g/dl (6.4-8.2)
[2017-06-02] MEDS: SODIUM CHLORIDE 1,000 ML IV SCH (09:00)
--- NOTE | 2017-06-02 09:04 | PN ---
Progress Note, Physician Chief Complaint: Not in distress No further vomiting episodes History of Present Illness: Patient was seen and examined. Awake and alert. Chart was reviewed Denies chest pain, SOB or palpitations No abdominal pain - Current Medication List Current Medications: Active Medications Acetaminophen (Tylenol -) 650 mg PO Q6H PRN PRN Reason: FEVER OR PAIN Last Admin: 06/01/17 22:27 Dose: 650 mg Allopurinol (Zyloprim -) 200 mg PO DAILY [facility] Aspirin (Asa -) 81 mg PO DAILY [facility] Atorvastatin Calcium (Lipitor -) 10 mg PO HS [facility] Last Admin: 06/01/17 22:26 Dose: 10 mg Cyanocobalamin (Vitamin B12 -) 1,000 mcg PO DAILY [facility] Donepezil HCl (Aricept -) 5 mg PO DAILY [facility] Glyburide (Diabeta -) 5 mg PO DAILY@0700 [facility] Last Admin: 06/02/17 06:08 Dose: 5 mg HCTZ/Losartan Potassium (Hyzaar -) 1 tab PO DAILY [facility] Sodium Chloride (Normal Saline -) 1,000 mls @ 75 mls/hr IV ASDIR [facility] Last Admin: 06/01/17 14:16 Dose: 75 mls/hr Insulin Aspart (Novolog Vial Sliding Scale -) 1 vial SQ ACHS [facility] PRN Reason: Protocol Last Admin: 06/02/17 06:07 Dose: Not Given Memantine (Namenda -) 10 mg PO BID [facility] Last Admin: 06/01/17 22:28 Dose: 10 mg Methimazole (Tapazole -) 5 mg PO SuThFrSa@10 [facility] Pantoprazole Sodium (Protonix -) 40 mg PO DAILY [facility] Ranitidine HCl (Zantac -) 150 mg PO BID [facility] Last Admin: 06/01/17 22:28 Dose: 150 mg - Objective Vital Signs: Vital Signs Temperature 97.4 F L 06/02/17 06:00 Pulse Rate 72 06/02/17 06:00 Respiratory Rate 18 06/02/17 06:00 Blood Pressure 106/51 06/02/17 06:00 O2 Sat by Pulse Oximetry (%) 99 06/01/17 21:00 Neck: Yes: Supple Cardiovascular: Yes: Regular Rate and Rhythm, S1, S2 Respiratory: Yes: CTA Bilaterally Gastrointestinal: Yes: Normal Bowel Sounds, Soft. No: Tenderness Edema: No Additional Findings/Remarks: - Review of Systems Constitutional: denies: Chills, Fever Cardiovascular: denies: Chest Pain, Palpitations, Shortness of Breath Respiratory: denies: Cough, Hemoptysis, Orthopnea, PND, SOB, SOB on Exertion Gastrointestinal: reports: Vomiting. denies: Abdominal Pain, Constipation, Diarrhea, Melena, Nausea, Rectal Bleeding Musculoskeletal: denies: Joint Pain Neurological: denies: Dizziness, Headache, Seizure, Syncope Labs: CBC, BMP 06/02/17 05:35 06/02/17 05:35 Problem List - Problems (1) Vomiting Code(s): R11.10 - VOMITING, UNSPECIFIED (2) Subdural hematoma, chronic Code(s): I62.03 - NONTRAUMATIC CHRONIC SUBDURAL HEMORRHAGE (3) CVA (cerebral vascular accident) Code(s): I63.9 - CEREBRAL INFARCTION, UNSPECIFIED Qualifiers: CVA mechanism: unspecified Qualified Code(s): I63.9 - Cerebral infarction, unspecified (4) HTN (hypertension) Code(s): I10 - ESSENTIAL (PRIMARY) HYPERTENSION Qualifiers: Hypertension type: essential hypertension Qualified Code(s): I10 - Essential (primary) hypertension (5) Gastric ulcer Code(s): K25.9 - GASTRIC ULCER, UNSP ACUTE OR CHRONIC, W/O HEMOR OR PERF (6) Diverticular disease Code(s): K57.90 - DVRTCLOS OF INTEST, PART UNSP, W/O PERF OR ABSCESS W/O BLEED Qualifiers: Diverticulosis site: unspecified location Diverticulosis bleeding: diverticulosis without bleeding Qualified Code(s): K57.90 - Diverticulosis of intestine, part unspecified, without perforation or abscess without bleeding (7) Diabetes mellitus Code(s): E11.9 - TYPE 2 DIABETES MELLITUS WITHOUT COMPLICATIONS Qualifiers: Diabetes mellitus type: type 2 Diabetes mellitus complication status: without complication Diabetes mellitus intermediate project manager insulin use: without jail use Qualified Code(s): E11.9 - Type 2 diabetes mellitus without complications Assessment/Plan 1. Vomiting with underlying history of gastric ulcer 2. Hypertension 3. NIDDM 4. Hypercholesterolemia 5. History of colon CA 6. CVA and history of subdural hematoma 7. History of diverticular disease and GERD 8. Demand ischemia PLAN: 1. GI input to follow 2. Trend troponins - demand ischemia 3. Continue Losartan/HCTZ as tolerated 4. Continue Lipitor 5. ASA if not contraindicated and no further GI intervention is planned 6. Transthoracic echocardiography to assess LV/RV and valvular function Further plans are to follow Matthew Sigala MD
[2017-06-02] MEDS: MEMANTINE HCL 10 MG TABLET (FP) PO SCH (09:09)
[2017-06-02] MEDS: RANITIDINE HCL 150 MG TABLET (FP) PO SCH (09:10)
[2017-06-02] MEDS ORDERED: ASPIRIN 81 MG CHEWABLE TABLETS PO SCH (10:00)
[2017-06-02] MEDS ORDERED: DONEPEZIL HCL 5 MG TABLET (FP) PO SCH (10:00)
[2017-06-02] MEDS ORDERED: LOSARTAN 50MG/HCTZ 12.5MG 1 TAB (FP) PO SCH (10:00)
[2017-06-02] MEDS ORDERED: ALLOPURINOL 100 MG TABLET (FP) PO SCH (10:00)
[2017-06-02] MEDS ORDERED: CYANOCOBALAMIN 1,000 MCG TABLET (FP) PO SCH (10:00)
[2017-06-02] MEDS ORDERED: PANTOPRAZOLE 40 MG TABLET (FP) PO SCH (10:00)
[2017-06-02 10:23] VITALS: BP 142/80; PULSE 80; TEMP 98
[2017-06-02 11:11] LABS: ALK PHOS 70 U/L (45-117); BILIRUBIN,TOTAL 0.6 mg/dL (0.2-1.0)
--- NOTE | 2017-06-02 12:04 | DS ---
Physical Exam: SUBJECTIVE: Patient seen and examined. She denies vomiting, rectal bleeding, nausea. She is tolerating PO diet well. Eager to go home to care for her sick OBJECTIVE: Vital Signs Period Temp Pulse Resp BP Sys/Valles Pulse Ox Last 24 Hr 97.3 F-98.2 F 72-86 16-18 101-142/46-80 95-100 Pe Neuro: alert, awake, cn 2-12intact Pulm: CTAB CV: s1 s2 rrr no mrg Abd: s nt nd + bs Ext: warm, no le edema Laboratory Results - last 24 hr 06/01/17 06/01/17 06/01/17 13:42 18:40 20:25 WBC RBC Hgb Hct MCV MCH MCHC RDW Plt Count MPV Neutrophils % Lymphocytes % Monocytes % Eosinophils % Basophils % Sodium Potassium Chloride Carbon Dioxide Anion Gap BUN Creatinine Creat Clearance w eGFR POC Glucometer 153 Random Glucose Calcium Magnesium Total Bilirubin AST ALT Alkaline Phosphatase Creatine Kinase 215 H Creatine Kinase Index 1.8 CK-MB (CK-2) 3.969 H Troponin I 0.09 H 0.09 H Total Protein Albumin Triglycerides Cholesterol Total LDL Cholesterol HDL Cholesterol 06/01/17 06/02/17 06/02/17 22:26 05:35 05:35 WBC 5.8 RBC 3.62 Hgb 11.1 Hct 33.3 MCV 92.0 MCH 30.7 MCHC 33.4 RDW 14.4 Plt Count 144 MPV 8.5 Neutrophils % 57.3 Lymphocytes % 29.8 D Monocytes % 9.8 Eosinophils % 2.5 Basophils % 0.6 Sodium 141 Potassium 4.1 Chloride 108 H Carbon Dioxide 26 Anion Gap 7 L BUN 22 H D Creatinine 1.5 H D Creat Clearance w eGFR 33.58 POC Glucometer 128 Random Glucose 94 Calcium 8.7 Magnesium 2.0 Total Bilirubin 0.6 D AST 22 ALT 21 Alkaline Phosphatase 70 Creatine Kinase Creatine Kinase Index CK-MB (CK-2) Troponin I Total Protein 6.8 Albumin 3.5 Triglycerides 135 Cholesterol 115 Total LDL Cholesterol 51 HDL Cholesterol 50 HOSPITAL COURSE: Date of Admission:06/01/17 Date of Discharge: 06/02/17 Minutes to complete discharge: 37 Discharge Summary Reason For Visit: ACUTE KIDNEY INJURY,ELEVATED TROPONIN LEVEL Current Active Problems CVA (cerebral vascular accident) (Acute) Diabetes mellitus (Acute) Diverticular disease (Acute) Gastric ulcer (Acute) HTN (hypertension) (Acute) Vomiting (Acute) Hospital Course: Initial Hospital Course: Briefly, this 76 year old female with a significant past medical history of hypertension, diabetes mellitus, gastric ulcer disease, dementia, colon adenoma , history of colon polyps, diverticulities, GERD, gout and CVA/subdural hematoma (2014) presented with abdominal pain for 2 days with nausea and vomiting. She noted on Wednesday and Wednesday she vomited what appeared to be "dark [place] colored" vomiting, no blood in stool. Sister at bedside confirmed "Dark liquid" She has been on PPI for PUD Recent endoscopy in 12/2016 failed to reveal PUD, however reflux noted and a non- obstructing schatzki's ring and a hiatal hernia. Subsequent Hospital Course/Progress Note/Discharge Summary: Evaluated by GI, UGIB rulled out, possible that vomitus was due to retained gastric content vs true heme. After tolerating clear diet, pt was sent home on PO diet and to continue PPI with outpt GI follow up Additionally, troponin rise of 0.09 x3 likely demand ischemia, no changes to meds by cardiology service ECHO preformed showed normal LVSF, size, no wall motion, mod MR, mild TR Seen with ZAID, likely pre renal, pt was given fluids with improvement to around baseline cr (~1.4) Pt instructed to continue home meds as listed and follow up with GI and cardiology in next 1-2 week Condition: Stable - Instructions Diet, Activity, Other Instructions: Please return to the ED for any new, persistent, or worsening symptoms. Follow up with your PCP in 1 week Follow up with Dr. Joseph as outpt Continue home medications as directed on home medication list Referrals: Mera Whitehead MD [Staff Physician] - 1 Week Cleopatra Joseph MD [Staff Physician] - 2 Weeks Hanny Piper MD [Primary Care Provider] - 1 Week Disposition: HOME - Home Medications Comprehensive Discharge Medication List: Ambulatory Orders Allopurinol [Zyloprim -] 200 mg PO DAILY 04/05/15 Aspirin [ASA -] 81 mg PO DAILY 04/05/15 Atorvastatin Ca [Lipitor] 10 mg PO HS 04/05/15 Glyburide 5 mg PO DAILY 04/05/15 Losartan/Hydrochlorothiazide [Losartan-Hctz 100-25 mg Tab] 1 each PO DAILY 04/05 Alendronate Sodium [Binosto] 70 mg PO TU 12/23/16 Bimatoprost [Lumigan] 1 drop IO DAILY 12/23/16 Cyanocobalamin (Vitamin B-12) [Vitamin B12] 1,000 mcg PO DAILY 12/23/16 Donepezil HCl [Aricept -] 5 mg PO DAILY 12/23/16 Memantine HCl [Namenda -] 10 mg PO BID 12/23/16 Methimazole [Tapazole] 5 mg PO ASDIR 12/23/16 Pantoprazole Sodium [Protonix] 40 mg PO DAILY #0 tablet. 12/23/16 Ranitidine HCl [Zantac] 150 mg PO BID 06/01/17 This patient is new to me today: Yes Date on this admission: 06/03/17 Emergency Visit: Yes ED Registration Date: 06/01/17 Care time: The patient presented to the Emergency Department on the above date and was hospitalized for further evaluation of their emergent condition. Critical Care patient: No - Discharge Referral Referred to [facility] Med [facility].: No
[2017-06-03] MEDS ORDERED: METHIMAZOLE 5 MG TABLET (FP) PO SCH (10:00)
--- NOTE | 2017-06-03 13:17 | EKG ---
Test Reason : Blood Pressure : / mmHG Vent. Rate : 078 BPM Atrial Rate : 078 BPM P-R Int : 160 ms QRS Dur : 078 ms QT Int : 372 ms P-R-T Axes : 061 -03 049 degrees QTc Int : 424 ms NORMAL SINUS RHYTHM NORMAL ECG WHEN COMPARED WITH ECG OF 01-JUN-2017 09:07, NO SIGNIFICANT CHANGE WAS FOUND Confirmed by ELMO MCCARTHY MD ([id number]) on 06/03/2017 1:16:57 PM Referred By: SHIRA CHAMBERS DR Confirmed By:ELMO MCCARTHY MD
== END 2017-06-02 13:25 | disposition home or self-care (01) ==
LOC: JER 08:17 → JERBED 12:50 → J4W 14:25
PROVIDERS: ADMIT Internal Medicine; ATTEND Nurse Practitioner Acute Care
PROC: 3E033GC Introduction of Other Therapeutic Substance into Peripheral Vein, Percutaneous Approach (ICD-10-PCS; principal; 2017-06-01)
PROC: 3E0337Z Introduction of Electrolytic and Water Balance Substance into Peripheral Vein, Percutaneous Approach (ICD-10-PCS; 2017-06-01)
DX: N17.9 Acute kidney failure, unspecified (principal); R77.8 Other specified abnormalities of plasma proteins; I63.9 Cerebral infarction, unspecified; K57.90 Diverticulosis of intestine, part unspecified, without perforation or abscess without bleeding; I10 Essential (primary) hypertension; E78.5 Hyperlipidemia, unspecified; F03.90 Unspecified dementia, unspecified severity, without behavioral disturbance, psychotic disturbance, mood disturbance, and anxiety; E11.9 Type 2 diabetes mellitus without complications; E04.9 Nontoxic goiter, unspecified; M10.9 Gout, unspecified; Z86.73 Personal history of transient ischemic attack (TIA), and cerebral infarction without residual deficits; Z79.82 Long term (current) use of aspirin; R11.10 Vomiting, unspecified; I62.03 Nontraumatic chronic subdural hemorrhage; Z85.038 Personal history of other malignant neoplasm of large intestine; K25.9 Gastric ulcer, unspecified as acute or chronic, without hemorrhage or perforation
CPT/HCPCS: 36415; 74020-TC; 80053; 80061; 81003; 82553; 83605; 83690; 83721; 83735; 84484; 85025; 85027; 93005; 93010; 93306-TC; 99284-25; G0378